=== PATIENT | male | born 1990 | race Caucasian/White ===

== ENCOUNTER 2016-06-07 22:08 | Emergency (ER) | payer OTHER ==
[2016-06-07 22:11] VITALS: BP 156/95; PULSE 84; RESP 15; TEMP 98; O2SAT 96
[2016-06-07] MEDS ORDERED: CEPH-460 PO (22:58)
[2016-06-07] MEDS ORDERED: BACT800T5 PO (22:58)
[2016-06-07] MEDS ORDERED: CEPHALEXIN MONOHYDRATE 500 MG CAP PO ONE (23:00)
[2016-06-07] MEDS ORDERED: SULFAMETHOXAZOLE-TRIMETHOPRIM DS 800-160 MG TAB PO ONE (23:00)
--- NOTE | 2016-06-07 23:07 | PD ---
HPI Chief Complaint: Skin Problem Time Seen by Provider: 23:01 Travel History International Travel<30 days: No Contact w/Intl Traveler<30days: No Traveled to known affect area: No History of Present Illness HPI 25-year-old white male presents to emergency department complains of a infection in his left nostril over the past 3-4 days. He states that he had poked his nostril with a needle and expressed a small amount of pus. He states that he has had some irritation, skin breakdown around nostril. He is concerned that it is still infected. He also goes on to state that he has a history of substance abuse. He had been smoking crack cocaine, and injecting cocaine. He alleges sobriety now for approximately 4-7 days. He is requesting evaluation for hepatitis and HIV. [facility] Past Medical History Narrative Medical Substance abuse Tetanus Vaccination: < 5 Years Social History Alcohol Use: Yes Tobacco Use: Yes Substance Use: Yes Allergies-Medications (Allergen,Severity, Reaction): Coded Allergies: No Known Allergies (Unverified , 06/07/16) Reported Meds & Prescriptions Reported Meds & Active Scripts Active Keflex (Cephalexin) 500 Mg Cap 500 Mg PO Q6H Bactrim DS (Sulfamethoxazole-Trimethoprim) 800-160 Mg Tab 1 Tab PO BID Review of Systems Except as stated in HPI: all other systems reviewed are Neg Physical Exam Narrative GENERAL: Well-developed, well-nourished in no acute distress. Nontoxic appearing. HEAD: Normocephalic, the left naris is mildly erythematous and tender. There is an abrasion over the lateral aspect of the nose. There is no fluctuance or pointing. No evidence of facial cellulitis. EYES: Pupils equal round and reactive. Extraocular motions intact. No scleral icterus. No injection or drainage. ENT: TMs clear without erythema. The external auditory canals clear. Nose: clear . Posterior pharynx is pink and moist. No tonsillar edema or exudate. Uvula midline. Airway patent. NECK: Trachea midline.Supple, nontender, moves head freely. No central bony tenderness or spasm. CARDIOVASCULAR: Regular rate and rhythm without murmurs, gallops, or rubs. RESPIRATORY: Clear to auscultation. Breath sounds equal bilaterally. No wheezes , rales, or rhonchi. GASTROINTESTINAL: Abdomen soft, non-tender, nondistended. No hepato-splenomegaly , or palpable masses. No guarding. EXTREMITIES: No clubbing, cyanosis, or edema. No joint tenderness, effusion, or edema noted. BACK: Nontender without deformity or crepitance. No flank tenderness. Data Data Last Documented VS Vital Signs Date Time Temp Pulse Resp B/P Pulse Ox O2 Delivery O2 Flow Rate FiO2 06/07/16 22:11 98.0 84 15 156/95 96 Room Air Orders Sulfamet-Trimeth Ds 800-160 Mg (Bactrim (06/07/16 23:00) Cephalexin (Keflex) (06/07/16 23:00) MDM Medical Decision Making Medical Screen Exam Complete: Yes Emergency Medical Condition: Yes Medical Record Reviewed: Yes Differential Diagnosis MDM: High Differential diagnoses: Abscess, folliculitis, cellulitis, lymphangitis, abrasion, contact dermatitis Narrative Course Patient alleges a superficial abscess to the tip of his left nostril. He had performed a needle aspiration a few days ago. He complains of tenderness and redness. We will cover him with Bactrim and Keflex. He is given a dose here in the ER and a prescription for 1 week. This is left naris abscess-resolving Diagnosis Primary Impression: left naris abscess-resolving Patient Instructions: General Instructions Departure Forms: Tests/Procedures, Work Release Special Instructions: No work 3 days. Additional Instructions: Rest. Daily wound care with soap, water, Neosporin. Do not pick, or squeeze your face. Keflex and Bactrim DS. Recheck with a primary care doctor in the next 3-7 days. Follow-up with the [facility] for hepatitis and HIV testing. Follow-up with narcotics anonymous. Return to the ER for any problems. Med/Other Pt SpecificInfo: Prescription(s) given, Wound Care Scripts Cephalexin (Keflex)500 Mg [id number] Mg PO Q6H #28 CAP Prov:Kar Trevino MD 06/07/16 Sulfamethoxazole-Trimethoprim (Bactrim DS)800-160 Mg Tab1 Tab PO BID #14 TAB Prov:Kar Trevino MD 06/07/16 Disposition: 01 DISCHARGE HOME Condition: Stable Michael Liriano Jun 07, 2016 23:07
== END 2016-06-07 23:21 | disposition home or self-care (01) ==
LOC: NEPB 22:08
DX: J34.0 Abscess, furuncle and carbuncle of nose (principal); F14.10 Cocaine abuse, uncomplicated
CPT/HCPCS: 99283